=== PATIENT | female | born 2000 | race Hispanic/Latino ===

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

== ENCOUNTER 2024-04-29 00:50 | Emergency (ER) | payer SELFPAY ==
[~2024-04-29] VITALS: Ht 162.6 cm; Wt 61.2 kg
--- NOTE | 2024-04-29 02:20 | ERN ---
ED Note History of Present Illness Stated Complaint: FOREIGN BODY Chief Complaint: FORIEGN BODY VAGINA Time Seen by MD: 01:07 Dictation: This is a 24-year-old female who presented to the emergency room stating that she had a tampon that got stuck in the vagina. She stated that she placed a tampon on Thursday and forgot to remove prior to sexual intercourse. She was apparently drunk and does not recall if she actually took it out or not. Thursday she felt foul odor in the vaginal area as well as lower abdominal cramping during intercourse again and she was concerned if she had a retained tampon and came to the ER for evaluation No vaginal discharge or bleeding. No dysuria hematuria or frequency Temperature 99.4 pulse 91 respirations 19 blood pressure 135/84 with a pulse oximetry of 96% on room air Past Medical History Past Medical History: No Pertinent History Surgical History: None Family History: Negative Social History: Negative LMP: Apr 07, 2024 RN Note Reviewed/Agreed w/PFSH: Yes Review of System Dictation Constitutional: Negative for fever,chills, and weight loss Eyes: Negative for injury, pain,redness, and discharge ENT: Negative for injury,pain or swelling Cardiovascular: Negative for chest pain, palpitations, and edema Respiratory: Negative for shortness of breath, cough, and wheezing, Abdomen/GI: Negative for abdominal pain, nausea, vomiting, diarrhea, and constipation Back: Negative for injury and pain : Negative for injury, bleeding and discharge positive for foul-smelling vaginal discharge and possible retained tampon MS/Extremity: Negative for injury and deformity Skin: Negative for rash, and discoloration Neuro: Negative for headache, weakness, numbness, tingling, and seizure Psych: Negative for suicide ideation, homicidal ideation, and hallucinations Initial Vital Sign VS Vital Signs Date Time Temp Pulse Resp B/P (MAP) Pulse Ox O2 Delivery O2 Flow Rate FiO2 04/29/24 01:05 99.3 91 19 135/84 99 Room Air 04/29/24 02:30 0 21 Physical Exam Dictation General: awake, alert, NAD Head/Face: Normocephalic, atraumatic Eyes: PERRL, EOMI, vision at baseline ENT: oral cavity clear, TMs clear, no signs of infection Neck: Trachea midline, supple, no nuchal rigidity Cardiovascular: RRR, normal S1/S2, No MRGs, no JVD Respiratory: CTAB, no respiratory distress, No rales or wheezes Abdomen: Soft, non-tender, non-distended, normal bowel sounds, no guarding or rebound. Skin: Warm, dry, normal turgor, no rash MS/Extremity: Pulses equal, no cyanosis, neurovascular intact, FROM Neuro: COAx4, GCS 15, strength 5/5, CN 2-12 intact, normal cerebellar exam, normal gait, Psych: Normal behavior, mood, and affect normal Extremities-trace edema without any palpable cords, Homans sign is negative Pelvic exam details in the procedure note Results (Laboratory/Radiology) Labs Reviewed?: Yes ED Course ED Course Vital Signs Date Time Temp Pulse Resp B/P (MAP) Pulse Ox O2 Delivery O2 Flow Rate FiO2 04/29/24 02:30 99.1 84 16 126/82 96 Room Air* 0 21 04/29/24 01:05 99.3 91 19 135/84 99 Room Air Speculum pelvic exam to visualize the tampon and attempt removal. 2:45 a.m.-pelvic exam and speculum exam were negative for any retained tampon. Small amount of likely semen noted in the vagina. No immediate complications were noted Instructed patient to still follow up with the livestock farmers. Patient denied any pain or discomfort and does not want any pain medications or antibiotics. We will discharge to home. Medical Decision Making MDM MDM: Differential diagnosis: Rationale: Tests considered and ordered secondary to shared decision making include: Previous outside records reviewed: Old ER visits. Risk of complication and/or morbidity or mortality of patient management: None Medications-Per medication reconciliation Need for hospitalization: Patient does not meet criteria for hospitalization. Need for emergency major/minor surgery: No There are no social concerns with this patient. Prescription drug management Prescriptions will include symptomatic care Patient's prior external medical records from other ER visits were reviewed by me as indicated. Prior testing and results from previous visits were reviewed. Prior tests were taken into account with medical decision making and resource utilization, independent historian/historians were used to obtain complete medical history. I independently interpreted the test that were performed, results were reviewed by me and considered findings on radiology if ordered. Medical management and examination interpretation discussions were had by me with other qualified healthcare professionals as indicated for the patient's care. Procedure Additional Procedures: other Progress Pelvic exam Positioning-patient was placed in dorsal lithotomy position Draping-proper draping to provide privacy done Procedure after briefly explaining the procedure to the patient, risks benefits were discussed and patient was willing to proceed all questions answered Speculum exam-disposable speculum medium-sized was used. It was lubricated with water-soluble lubricant . Cervix appeared to have normal anatomy and a small area in the 7 o'clock position of erosion noted. Mild erythema noted. Whitish drainage seen on the vaginal [place] and behind the cervix.. Patient indicated that she just had sexual intercourse. No evidence of any inflammation of the vaginal [place] or purulent drainage No retained tampon seen. Problem List Problem List: (1) Vaginitis (2) Retained tampon DX & DISP Disposition: Discharge Departure Impression: Primary Impression: Vaginitis Additional Impression: Retained tampon Condition: Stable Additional Instructions: Patient and the caregiver have been informed of all the diagnostic tests and the imaging conducted during the today's visit to the emergency room and has verbalized understanding of the results I have personally reviewed and interpreted all diagnostic exams performed here in the ER today as well as the vital signs documented by the nursing staff. The patient is now being discharged to home and should follow up with the primary care physician or the specialist as directed by the ER staff. Follow-up with primary care provider in 1 to 2 days. Take medications as directed here in the emergency room. Okay to continue home medications unless otherwise discussed during your visit in the emergency room today. Return to your nearest emergency room if symptoms worsen or if there is no improvement. Call 911 if you need immediate assistance. Take Tylenol or Motrin [id number] as needed and if no contraindications are present. Increase oral hydration. A wound culture or urine culture was ordered here in the emergency room department please follow-up with primary care provider and advise them to get repeat ports from our facility. If you had any Red wrap/splints that were applied here, please do not remove them until you see your primary care or specialty. Referrals: GENESIS DE LA FUENTE (PCP) LAURA GAYLE MD Apr 29, 2024 02:20
[2024-04-29 02:30] VITALS: BP 126/82; PULSE 84; RESP 16; TEMP 99.1; O2SAT 96
--- NOTE | 2024-04-29 02:40 | NUR ---
VAGINAL EXAM DONE BY DR GAYLE, NO FOREIGN BODY FOUND IN VAGINAL CANAL
== END 2024-04-29 03:03 | disposition home or self-care (01) ==
LOC: EDH 00:50
DX: T19.2XXA Foreign body in vulva and vagina, initial encounter (principal); N76.0 Acute vaginitis; W44.8XXA Other foreign body entering into or through a natural orifice, initial encounter; Y93.89 Activity, other specified; Y92.89 Other specified places as the place of occurrence of the external cause; Y99.8 Other external cause status
CPT/HCPCS: 99284